=== PATIENT | female | born 1960 | race Caucasian/White ===

== ENCOUNTER 2023-06-05 09:46 | Emergency (ER) | payer MEDICARE ==
[~2023-06-05] VITALS: Ht 154.9 cm; Wt 76.7 kg
[2023-06-05 10:34] LABS: BASO # 0.1 10*3/uL (0.0-0.1); BASO % 0.8 % (0.0-1.0); EOS # 0.1 10*3/uL (0.0-0.4); EOS % 0.9 % (1.0-4.0); HEMATOCRIT 27.2 % (37.0-47.0); LYMPH # 1.5 10*3/uL (1.3-4.4); MEAN CELL VOLUME 73.3 fl (81.0-99.0); MEAN CORPUSCULAR HGB 21.3 pg (27.0-31.0); MEAN PLATELET VOLUME 10.9 fl (9.6-12.3); MONO # 1.1 10*3/uL (0.1-1.0); MONO % 9.4 % (3.0-9.0); NEUT # 8.4 10*3/uL (2.3-7.9); NEUT % 75.1 % (47.0-73.0); PLATELET COUNT AUTOMATED 424 10*3/uL (130-400); RED BLOOD COUNT 3.71 10*6/uL (4.10-5.10); RED CELL DISTRI WIDTH 17.1 % (0-14.5); WHITE BLOOD COUNT 11.2 10*3/uL (4.8-10.8)
[2023-06-05 10:45] LABS: ACT PARTIAL THROMBO TIME 27.6 SECONDS (20.0-32.1); INTERNATIONAL NORM RATIO 1.1 (2.0-3.5)
[2023-06-05 10:57] LABS: ALKALINE PHOSPHATASE 86 U/L (46-116); BUN 13 mg/dl (9-23); CHLORIDE 100 mmol/L (98-107); LIPASE 43 U/L (12-53); POTASSIUM 4.1 mmol/L (3.4-5.1); SGPT/ALT 25 U/L (10-49); TOTAL PROTEIN 6.8 gm/dL (6.0-8.0)
[2023-06-05] MEDS ORDERED: AMOXICILLIN875 MG PO (12:05)
[2023-06-06 07:36] LABS: BASO # 0.1 10*3/uL (0.0-0.1); BASO % 1.1 % (0.0-1.0); EOS # 0.2 10*3/uL (0.0-0.4); EOS % 1.5 % (1.0-4.0); HEMATOCRIT 26.2 % (37.0-47.0); LYMPH # 1.4 10*3/uL (1.3-4.4); LYMPH % 13.4 % (27.0-41.0); MEAN CELL VOLUME 74.6 fl (81.0-99.0); MEAN CORPUSCULAR HGB 21.4 pg (27.0-31.0); MEAN CORPUSCULAR HGB CONC 28.6 g/dl (33.0-37.0); MEAN PLATELET VOLUME 10.4 fl (9.6-12.3); MONO # 0.9 10*3/uL (0.1-1.0); MONO % 9.2 % (3.0-9.0); NEUT # 7.6 10*3/uL (2.3-7.9); PLATELET COUNT AUTOMATED 383 10*3/uL (130-400); RED BLOOD COUNT 3.51 10*6/uL (4.10-5.10); RED CELL DISTRI WIDTH 17.2 % (0-14.5); WHITE BLOOD COUNT 10.3 10*3/uL (4.8-10.8)
[2023-06-06 08:00] LABS: ALKALINE PHOSPHATASE 74 U/L (46-116); BUN 11 mg/dl (9-23); CHLORIDE 103 mmol/L (98-107); POTASSIUM 4.3 mmol/L (3.4-5.1); SGPT/ALT 21 U/L (10-49); TOTAL PROTEIN 6.4 gm/dL (6.0-8.0)
== END 2023-06-06 14:44 | disposition short-term general hospital (02) ==
LOC: ED 09:46
PROVIDERS: Emergency Medicine
DX: R19.09 Other intra-abdominal and pelvic swelling, mass and lump (principal); D62 Acute posthemorrhagic anemia; K92.2 Gastrointestinal hemorrhage, unspecified; Z88.2 Allergy status to sulfonamides

== ENCOUNTER → 2024-08-04 | Outpatient (CLI) | payer MEDICARE ==
[~2024-08-04] MED LIST: AMOXICILLIN875 MG PO
[2024-08-04 11:13] LABS: HEMATOCRIT 22.5 % (37.0-47.0); MEAN CELL VOLUME 89.3 fl (81.0-99.0); MEAN CORPUSCULAR HGB CONC 29.3 g/dl (33.0-37.0); MEAN PLATELET VOLUME 9.7 fl (9.6-12.3); PLATELET COUNT AUTOMATED 216 10*3/uL (130-400)
[2024-08-04 11:15] LABS: MEAN CORPUSCULAR HGB 26.2 pg (27.0-31.0); RED BLOOD COUNT 2.52 10*6/uL (4.10-5.10); RED CELL DISTRI WIDTH 16.4 % (0-14.5); WHITE BLOOD COUNT 12.6 10*3/uL (4.8-10.8)
[2024-08-04 12:54] LABS: MANUAL DIFF REFLEX YES
[2024-08-04 12:56] LABS: PLATELET SUFFICIENCY NORMAL (NORMAL); POLYCHROMASIA MODERATE; TOTAL CELLS COUNTED 100 #CELLS
== END | disposition home or self-care (01) ==
LOC: LAB 10:45
PROVIDERS: ATTEND Internal Medicine Hematology & Oncology
DX: T82.868D Thrombosis due to vascular prosthetic devices, implants and grafts, subsequent encounter (principal); D50.9 Iron deficiency anemia, unspecified; C78.7 Secondary malignant neoplasm of liver and intrahepatic bile duct; C7A.02 Malignant carcinoid tumors of the appendix, large intestine, and rectum; D64.9 Anemia, unspecified; D70.1 Agranulocytosis secondary to cancer chemotherapy; X58.XXXD Exposure to other specified factors, subsequent encounter

== ENCOUNTER → 2024-08-11 | Outpatient (CLI) | payer MEDICARE ==
[2024-08-11 11:32] LABS: BASO # 0.1 10*3/uL (0.0-0.1); BASO % 0.6 % (0.0-1.0); EOS # 0.1 10*3/uL (0.0-0.4); EOS % 0.4 % (1.0-4.0); HEMATOCRIT 24.8 % (37.0-47.0); LYMPH % 7.2 % (27.0-41.0); MEAN CELL VOLUME 89.2 fl (81.0-99.0); MEAN CORPUSCULAR HGB 27.3 pg (27.0-31.0); MEAN CORPUSCULAR HGB CONC 30.6 g/dl (33.0-37.0); MEAN PLATELET VOLUME 9.9 fl (9.6-12.3); MONO # 0.8 10*3/uL (0.1-1.0); MONO % 6.2 % (3.0-9.0); NEUT # 11.6 10*3/uL (2.3-7.9); NEUT % 85.1 % (47.0-73.0); PLATELET COUNT AUTOMATED 254 10*3/uL (130-400); RED BLOOD COUNT 2.78 10*6/uL (4.10-5.10); RED CELL DISTRI WIDTH 15.8 % (0-14.5); WHITE BLOOD COUNT 13.7 10*3/uL (4.8-10.8)
== END | disposition home or self-care (01) ==
LOC: LAB 08-09 08:32
PROVIDERS: ATTEND Internal Medicine Hematology & Oncology
DX: T82.868A Thrombosis due to vascular prosthetic devices, implants and grafts, initial encounter (principal); C78.7 Secondary malignant neoplasm of liver and intrahepatic bile duct; C7A.02 Malignant carcinoid tumors of the appendix, large intestine, and rectum; D50.9 Iron deficiency anemia, unspecified; D64.9 Anemia, unspecified; D70.1 Agranulocytosis secondary to cancer chemotherapy; X58.XXXA Exposure to other specified factors, initial encounter